=== PATIENT | female | born 1940 | race Caucasian/White ===

== ENCOUNTER 2020-06-06 12:30 | Outpatient (RCR) | payer MEDICARE, SELFPAY ==
--- NOTE | 2020-04-09 14:40 | PTOPEVAL ---
PHYSICAL THERAPY EVALUATION AND PLAN OF CARE 04-09-2020 The PT evaluation was completed for the diagnosis of L UE lymphedema. Her order also includes LE lymphedema, which will be addressed/evaluated after the L UE is completed. Thank you for referring Anne Cortez to [facility].? The patient is scheduled to be seen for therapy? 3 x/week for 4 weeks. Please review, sign, date and return this plan of care NARGIS. I agree with and certify that the following plan of care is medically necessary. Referring Physician Date Attending Provider: ZIA Herrera *PT Outpatient Evaluation Start: 04/09/20 13:38 Document 04/09/20 13:30 LOVELY (Rec: 04/09/20 14:33 LOVELY [id number]) Therapy Assessment Status Assessment Status Assessment Status Evaluation Outpatient Past Medical History Past Medical History Source of Past Medical History Patient Neurological History Hx Neurological Disorders No Significant History Cardiovascular History Hx Hypertension Yes: take med Respiratory History Hx Respiratory Disorders No Significant History Gastrointestinal History Hx Gastrointestinal Disorders No Significant History Genitourinary History Hx Urinary Tract Infection Yes: completed anti biotics about 1 month ago Musculoskeletal History Hx Other Musculoskeletal Disorders Yes: go to chiropractor for posture - Endocrine History Hx Hypothyroidism Yes: take synthyroid HEENT History Hx HEENT Disorders No Significant History Reproductive History Hx Hysterectomy Yes Psychosocial History Hx Anxiety Yes: on lexapro Other History Hx Cancer Yes: L breast Hx Clostridium Difficile Yes: about 15 yr ago Hx Other Surgeries Yes: hernia repair ~ 20 yr ago ; hysterectomy Evaluation Information Problem Diagnosis lymphedema of UE and LE's Onset November 2019 Prior Level of Function Activity Level (Last 3 Months) Occupation retired Hand Dominance Right Activity of Daily Living Ability Independent Indoor/Home Mobility Independent Community Mobility Independent Stairs Ability Independent Functional Cognition (Planning, Shopping Independent , Taking Medications) Cooking Yes Cleaning Yes Laundry Yes Shopping Yes Driving Yes Home Setting Home Type House Living Situation Alone Mobility Assistive Devices (Used Last 3 None Months) Comments Additional Prior Level of Function local family assist PRN with Comments suzanne
--- NOTE | 2020-05-11 13:44 | PTOPEVAL ---
PHYSICAL THERAPY RE-EVALUATION AND UPDATED PLAN OF TREATMENT 05-11-2020 Treatment is complete for her L UE: circumferential measurement of arm has decreased by 23.8 cm; she has a compression sleeve and glove and has been educated on self care of lymphedema. Evaluation completed today to begin treatment for her R and L LE lymphedema. Thank you for referring Anne Cortez to [facility].? She is scheduled to be seen for therapy? 3 x/week for 5 weeks. Please review, sign, date and return this plan of care NARGIS. I agree with and certify that the following plan of care is medically necessary. Referring Physician Date Attending Provider: Daisy Hatfield, PA *PT Outpatient Re-Evaluation Document 05/11/20 13:00 LOVELY (Rec: 05/11/20 13:44 LOVELY [id number]) Subjective Information Anne reports she is late to Query Text:As Reported By Patient/ today's appt due to had to go Family to for bladder infection-- has antibiotic for 14 days; has corn on L toes, with bandage over toes- dr checked and going to have a bone density test on foot to check for bone damage and infection - not scheduled yet; is pleased with her L arm and sleeve and glove are comfortable; wants to have treatment for her legs now; Pain Assessment Timing of Pain Assessment Timing of Pain Assessment Assessment Self Report Self Report Pain Level 0 Pain Score Pain Score 0: Self Report Lymphedema Evaluation Skin Inspection Location Left Lower Extremity,Left Upper Extremity,Right Lower Extremity Skin Observations Absence of Leg Hair,Dorsum Foot Swelling,Hyperkeratosis, Hyperpigmentation,Shiny, Dry, Pale Skin,Swollen, Squared off Toes Skin Inspection Comment L UE: hand and wrist with good skin integrity; distal forearm tissue is good; upper forearm and lateral elbow tissue fibrotic; upper arm with good skin color and integrity; B LE: thighs with good skin color and integrity L and R LE: below knee and foot skin color is red- foot and lower 1/2 of lower leg
--- NOTE | 2020-05-11 13:50 | PCPTNOTE ---
pt was 30 minutes late for today's appointment, stated she was at dr office for bladder infection; Discussed with her that she needs to be on time for her appointments, has been late 15-30 minutes at least for every appointment. Stressed to her to arrive on time to get the full benefit of the therapy sessions. She stated she would try to make it, but have alot going on
--- NOTE | 2020-06-04 14:18 | PCPTNOTE ---
discussed home intermittent pump with pt for LE's; she is interested in pursuing it. Pt signed a release and her info was fasxed to Latanya at [facility]. Latanya will be here Wed 06-06 to demo the pump to pt;
--- NOTE | 2020-06-06 14:15 | PCPTNOTE ---
Anne Fofana UE lymphedema 189.0 directly related to patients breast cancer. 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 Pt is being seen to treat her osteomyelitis of her left 2nd toe which has an open wound that will not heal. She has made improvements as evidence in her measurements, however her symptoms are severe and if she does not treat at home, the swelling will return when she is discharged from therapy. Pt has had some setbacks since coming to therapy, in that, when she has the responsibility to perform self MLD without the use of the pump her legs did reswell over the weekend, requiring additional time to reduce her swelling. The lymphedema intermittent compression is required in order to maintain the progress she has made. Sue Guerra [employer], CLT 06-06-2020
--- NOTE | 2020-06-08 10:05 | PCPTNOTE ---
PHYSICAL THERAPY DISCHARGE 06-08-2020 Attending Provider: Daisy Hatfield, PA Patient:Anne Cortez Date of :1940 Mrs. Obed Cortez has received a total of 26 PT sessions, from April 09 to June 06, for the diagnosis of lymphedema of L UE, R LE and L LE. Circumferential measurements: all have decreased compared to initial evaluation: L UE, up to 44 cm is 277.7, decreased 23.8 cm; LE's up to 68 cm: R LE is 581.6 cm, decreased 29.3 cm and L LE is 590.5 cm, decreased by 42.3 cm. Compression garments: She has a Medivan Whick sleeve and glove, 30-40 mmHg for her L UE; for her LE's she has Medivan thigh high compression 30-40 mmHg. Anne is independent with donning and doffing the garments and has been educated on use. Skin integrity: Anne has good skin color and integrity over her L UE and B LE's. She does have some fibrotic tissue over lower legs, which softens after the lymph drainage and wearing her compression garments. There is some redness over L 2nd toe, which she is following with medical care for osteomyelitis. Education: She has been educated on self care of her lymphedema, with manual lymph drainage, compression garments, monitor skin and exercises. A home intermittent compression pump was demonstrated to her and [facility] is checking with her insurance for coverage for a home unit to assist with managing her chronic lymphedema. The goals have been met, therefore, she will be discharged from PT at this time. Thank you for referring Mrs. Obed Cortez to [facility]. Please review, sign, date and return this discharge summary NARGIS. I have been updated about the patient's current status and I agree with discharge from the above service at this time. Referring Physician Date
== END 2020-06-08 10:51 | disposition home or self-care (01) ==
LOC: ANHPT 12:30
PROVIDERS: PCP Internal Medicine; Visit Provider Physician Assistant Medical
DX: I89.0 Lymphedema, not elsewhere classified (principal)
CPT/HCPCS: 29581; 97016; 97140; 97161

== ENCOUNTER 2024-06-16 14:00 | Outpatient (RCR) | payer MEDICARE, SELFPAY ==
--- NOTE | 2024-03-28 16:46 | PTOPEVAL1 ---
Assessment and note entered by Elizabeth Lemon, PT Evaluation Information Assessment Status Evaluation Subjective Information Pt reports her grand daughter made her come here and do therapy. She denies any falls in the last 6 months and states that she is very careful and she prays all the time so she will not fall. Denies using assistive device in the past and adamant about not wanting to use any at all. She lives alone indep with all ADLs, and IADLs, driving. States her granddaughter comes over to help with cutting grass. Reports that she has been having chronic back pain and that is because of her Osteoporosis and she has received Chiropractic treatments in the past. States that she knows she is walking like a duck, she is not walking normal and would like therapy to help her walk better. Reported Pain Level Pain Score 0: Self Report Assessment PT Clinical Summary Pt is an 83yo female who presents to therapy with c/o abnormalities in gait and mobility, noticeable confusion and balance deficits, weakness and postural impairments. She will greatly benefit from skilled PT to improve indep functional mobility and reduce risk for falls. Plan of Care Interventions Gait Training,Hot Pack/Cold Pack,Manual Therapy, Neuro Re-education,Patient/Caregiver Education, Therapeutic Activities,Therapeutic Exercise, Ultrasound PT Services Indicated Yes Treatment Frequency and 2x/10 visits Duration These treatments will address the objective and functional deficits as defined above. The patient will be advanced safely and appropriately in order for the patient to progress towards his/her prior level of function. Additional exercises will be introduced and as well as a comprehensive home exercise program upon discharge, if needed, ?to ensure carryover of functional gains achieved in the clinic. This treatment plan has been reviewed and agreement upon by the patient.
--- NOTE | 2024-03-29 13:13 | OPREHPOC ---
Outpatient Therapy Plan of Care This is a Multidisciplinary Plan of Care that may contain components documented by all disciplines (PT, OT, and ST.) PT Problem 1 PT Problem #1 Knowledge Deficit PT Goal 1 Goal Pt will demo HEPs to improve trunk and BLE flexibility and strength Target Visit 10 PT Problem 2 PT Problem #2 Impaired Strength PT Goal 1 Goal PT will demo 5xSTS in 15 seconds or less without using BUE to improve general BLE strength Target Visit 10 PT Problem 3 PT Problem #3 Impaired Balance PT Goal 1 Goal 1. Pt will demo TUG score of 12 seconds or less with appropriate assistive device if needed to reduce risk for falls when ambulating in the community. 2. Pt will demo Tinetti Assessment score of 24/28 or more to reduce risk for falls when performing transfers and standing tasks at home and within the community. Target Visit 10 PT Problem 4 PT Problem #4 Impaired Gait PT Goal 1 Goal Pt will perform normalized gait pattern and safety gait mechanics when ambulating on various surfaces (concrete, level surfaces, uneven ground) and stairs Target Visit 10
--- NOTE | 2024-03-29 13:16 | PTOPEVAL1 ---
Assessment and note entered by Elizabeth Lemon, PT Evaluation Information Assessment Status Evaluation Diagnosis R26.9 ICD-10 Condition Codes (PT) Pain in low back M54.50,Difficulty Walking R26.2, Weakness R53.1 Onset several weeks ago Subjective Information Reports that she has been having chronic back pain and that is because of her Osteoporosis and she has received Chiropractic treatments in the past. States that she knows she is walking like a duck, she is not walking normal and would like therapy to help her walk better. Pt reports her grand daughter made her come here and do therapy. She denies any falls in the last 6 months and states that she is very careful and she prays all the time so she will not fall. Denies using assistive device in the past and adamant about not wanting to use any at all. She lives alone indep with all ADLs, and IADLs, driving. States her granddaughter comes over to help with cutting grass. Reported Pain Level Pain Score 0: Self Report Assessment PT Clinical Summary Pt is an 83yo female who presents to therapy with c/o abnormalities in gait and mobility, noticeable confusion and balance deficits, weakness and postural impairments. She will greatly benefit from skilled PT to improve indep functional mobility and reduce risk for falls. Plan of Care Interventions Gait Training,Hot Pack/Cold Pack,Manual Therapy, Neuro Re-education,Patient/Caregiver Educati, Therapeutic Activities,Therapeutic Exercise, Ultrasound PT Services Indicated Yes Treatment Frequency and 2x/10 visits Duration These treatments will address the objective and functional deficits as defined above. The patient will be advanced safely and appropriately in order for the patient to progress towards his/her prior level of function. Additional exercises will be introduced and as well as a comprehensive home exercise program upon discharge, if needed, ?to ensure carryover of functional gains achieved in the clinic. This treatment plan has been reviewed and agreement upon by the patient.
--- NOTE | 2024-04-27 13:30 | PCPTNOTE ---
Patient called & cancelled scheduled appointment this date due to family emergency
--- NOTE | 2024-05-02 16:59 | PTOPPROG ---
Assessment and note entered by Elizabeth Lemon, PT Evaluation Information Assessment Status Progress Diagnosis R26.9 ICD-10 Condition Codes (PT) Pain in low back M54.50,Difficulty Walking R26.2, Weakness R53.1 Onset several weeks ago Subjective Information Pt. reports she is feeling better. Assessment PT Clinical Summary Pt attended a total of 9 visits of Physical Therapy and demos gains in general strength and balance. She states she is not consistent with HEPs but performs regular housework on a daily basis and does a lot of walking. During the test and measures, pt continue to demo weakness to L hip flexors and abductors. She has partially met her goals and is motivated to continue working to achieve established residential goals to improve safety and indep mobility at home and in the community. Plan of Care Interventions Electrical Stimulation,Gait Training,Hot Pack/Cold Pack,Manual Therapy,Neuro Re-education,Patient/ Caregiver Education,Therapeutic Activities, Therapeutic Exercise,Ultrasound Other Interventions IASTM PT Services Indicated Yes Treatment Frequency and 2x/wk x 10 visits Duration These treatments will address the objective and functional deficits as defined above. The patient will be advanced safely and appropriately in order for the patient to progress towards his/her prior level of function. Additional exercises will be introduced and as well as a comprehensive home exercise program upon discharge, if needed, ?to ensure carryover of functional gains achieved in the clinic. This treatment plan has been reviewed and agreement upon by the patient.
--- NOTE | 2024-05-02 17:01 | PTOPPROG ---
Assessment and note entered by Elizabeth Lemon, PT Evaluation Information Assessment Status Progress Diagnosis R26.9 ICD-10 Condition Codes (PT) Pain in low back M54.50,Difficulty Walking R26.2, Weakness R53.1 Onset several weeks ago Subjective Information Pt. reports she is feeling better. However, she wants to continue working on her strength and balance because she does not want to fall and wants to continue being active in the community. Assessment PT Clinical Summary Pt attended a total of 9 visits of Physical Therapy and demos gains in general strength and balance. She states she is not consistent with HEPs but performs regular housework on a daily basis and does a lot of walking. During the test and measures, pt continue to demo weakness to L hip flexors and abductors. She has partially met her goals and is motivated to continue working to achieve established senior care goals to improve safety and indep mobility at home and in the community. Plan of Care Interventions Electrical Stimulation,Gait Training,Hot Pack/Cold Pack,Manual Therapy,Neuro Re-education,Patient/ Caregiver Education,Therapeutic Activities, Therapeutic Exercise,Ultrasound Other Interventions I[facility] PT Services Indicated Yes Treatment Frequency and 2x/wk x 10 visits Duration These treatments will address the objective and functional deficits as defined above. The patient will be advanced safely and appropriately in order for the patient to progress towards his/her prior level of function. Additional exercises will be introduced and as well as a comprehensive home exercise program upon discharge, if needed, ?to ensure carryover of functional gains achieved in the clinic. This treatment plan has been reviewed and agreement upon by the patient.
--- NOTE | 2024-06-16 16:25 | PTOPPROG ---
Assessment and note entered by Elizabeth Lemon, PT Re-Eval Information Assessment Status Progress Diagnosis R26.9 ICD-10 Condition Codes (PT) Pain in low back M54.50,Difficulty Walking R26.2, Weakness R53.1 Onset several weeks ago Subjective Information Pt. reports she is walking better and she has not had any falls since she started therapy. States she is working harder on doing her HEPs. She cont to feel balance issues when working in the yard and uneven surfaces but states she is being very careful. Assessment PT Clinical Summary Pt received a total of 20 skilled PT treatment sessions and demos good gains in mobility and strength. Noted improvement in balance and cont to ambulate without AD. No recent falls reported, Balance test scores have improved and pt is able to perform single leg standing task without BUE support. She will benefit from continued therapy to further work on her balance strategies and improve dynamic standing balance to allow indep and safe ambulation on uneven surfaces and stairs. Plan of Care Interventions Electrical Stimulation,Gait Training,Hot Pack/Cold Pack,Manual Therapy,Neuro Re-education,Patient/ Caregiver Education,Therapeutic Activities, Therapeutic Exercise,Ultrasound Other Interventions I[facility] PT Services Indicated Yes Treatment Frequency and 2x/wk x 6 visits Duration These treatments will address the objective and functional deficits as defined above. The patient will be advanced safely and appropriately in order for the patient to progress towards his/her prior level of function. Additional exercises will be introduced and as well as a comprehensive home exercise program upon discharge, if needed, ?to ensure carryover of functional gains achieved in the clinic. This treatment plan has been reviewed and agreement upon by the patient.
== END 2024-06-26 23:59 | disposition home or self-care (01) ==
LOC: ANHHIPT 14:00
PROVIDERS: PCP Physician Assistant Medical; Visit Provider Physician Assistant Medical
DX: R26.9 Unspecified abnormalities of gait and mobility (principal)
CPT/HCPCS: 97035; 97110; 97112; 97116; 97140; 97161; 97750

== ENCOUNTER 2024-07-29 13:15 | Outpatient (RCR) | payer MEDICARE, SELFPAY ==
--- NOTE | 2024-07-29 20:09 | PTOPDC ---
Assessment and note entered by Elizabeth Lemon, PT Discharge Information Assessment Status Discharge Diagnosis R26.9 ICD-10 Condition Codes (PT) Difficulty Walking R26.2,Weakness R53.1,Pain in low back M54.50 Onset several weeks ago Subjective Information Pt. reports she feels she is doing much better and walking better. Her grand daughter noticed that she (patient) is not dragging her foot anymore. Reported Pain Level Pain Score 0: Self Report Assessment PT Clinical Summary Pt received a total of 24 visits and demos good progress with therapy. Demos improved strength and mobility and gait mechanics. However, she continue to demo stiffness and balance deficits which continue to increase her risk for falls. Pt verbalized that she would like to discontinue therapy at this time and will perform exercises at home as educated, she has an upcoming PCP appointment for follow-up and assessment. Patient DC'd from therapy program. Plan of Care PT Services Indicated No
== END 2024-08-01 15:37 | disposition home or self-care (01) ==
LOC: ANHHIPT 13:15
PROVIDERS: PCP Physician Assistant Medical; Visit Provider Physician Assistant Medical
DX: R26.9 Unspecified abnormalities of gait and mobility (principal)
CPT/HCPCS: 97110; 97112; 97116; 97140; 97530; 97750

== ENCOUNTER 2024-12-19 09:15 | Outpatient (RCR) | payer MEDICARE, SELFPAY ==
--- NOTE | 2024-10-24 12:12 | PTOPEVAL1 ---
Assessment and note entered by Elizabeth Lemon, PT Evaluation Information Assessment Status Evaluation Diagnosis R26.89 ICD-10 Condition Codes (PT) Abnormalities of gait and mobility R26.9,Weakness R53.1 Subjective Information Pt reports she has received Physical Therapy in the past year for her back problems and BLE weakness to which she noticed good results. She presents to therapy today secondary to fear of falling and unsteadiness on her feet; denies dizziness or nausea, denies visual or hearing problems at this time. Reports has had 1 fall while picking up sticks in the yard and she was unable to get back up, needing physical assistance from neighbors. States she ambulates without AD and would like to continue being independent from AD as long as she could. States her personal goal for participating in therapy is to not fall and walk better. Assessment PT Clinical Summary Pt presents to therapy with c/o unsteadiness and reduced confidence in her balance. Demos an ABC scale level of 40%, Tinetti Assessment score and Ortiz Balance Score both fall on moderate to high risk for falls; pt also demos increased trunk rigidity, reports stiffness and occasional pain/ discomfort to back and BLEs, postural impairments, ROM deficits and weakness which impact overall mobility. Pt reports having 1 fall in the last 6 months and she was unable to get up from the floor , requiring increased physical assistance. She will greatly benefit from skilled PT intervention to focus on strengthening, flexibility, balance and coordination training, postural stability and safety awareness training in order to improve confidence with household and community functional mobility indep without AD. Plan of Care Interventions Gait Training,Hot Pack/Cold Pack,Manual Therapy, Neuro Re-education,Patient/Caregiver Education, Therapeutic Activities,Therapeutic Exercise PT Services Indicated Yes Treatment Frequency and 1x/wk x 10 visits Duration These treatments will address the objective and functional deficits as defined above. The patient will be advanced safely and appropriately in order for the patient to progress towards his/her prior level of function. Additional exercises will be introduced and as well as a comprehensive home exercise program upon discharge, if needed, ?to ensure carryover of functional gains achieved in the clinic. This treatment plan has been reviewed and agreement upon by the patient.
--- NOTE | 2024-12-05 10:17 | PTOPPROG ---
Assessment and note entered by Jo Rea, PT Evaluation Information Assessment Status Progress Diagnosis R26.89 ICD-10 Condition Codes (PT) Abnormalities of gait and mobility R26.9,Weakness R53.1 Subjective Information Pt states no falls since starting therapy. States is very careful and now she takes her phone with her. Is going to pear picker sticks today, uses a rake and then puts them all in a box, then uses a string to pull the box across the yard. Pt reports feeling her walking and her balance is much better . Assessment PT Clinical Summary Pt has attended therapy consistently for balance and gait. Pt shows some improvement in her balance with improved 5x it to stand, improved TUG scores , improved quality of gait and mobility, improved stair navigation. However her overall Tinetti score, Ortiz score, and inability to perform tandem and single leg stance show continued balance deficits putting her in a high fall risk category. She has two more visits and states she would like to be done with therapy at that point. In those visits we will focus on modification techniques to improve fall risk during her activities such as use of walking stick as discussed today. Plan of Care Interventions Gait Training,Hot Pack/Cold Pack,Manual Therapy, Neuro Re-education,Patient/Caregiver Education, Therapeutic Activities,Therapeutic Exercise,Self- Care/Home Management,Other PT Services Indicated Yes Treatment Frequency and Continue remainder of POC Duration These treatments will address the objective and functional deficits as defined above. The patient will be advanced safely and appropriately in order for the patient to progress towards his/her prior level of function. Additional exercises will be introduced and as well as a comprehensive home exercise program upon discharge, if needed, ?to ensure carryover of functional gains achieved in the clinic. This treatment plan has been reviewed and agreement upon by the patient.
--- NOTE | 2024-12-19 15:09 | PTOPDC ---
Assessment and note entered by Elizabeth Lemon, PT Discharge Information Assessment Status Discharge Diagnosis R26.89 ICD-10 Condition Codes (PT) Abnormalities of gait and mobility R26.9,Weakness R53.1 Subjective Information Pt reports she feels like she is walking better and her legs feel stronger. States she learned a lot from therapy and will try to continue doing exercises and to be cautious when outdoors to prevent falls. Reports she will continue to move around outside and refuse to use any assistive device at this time. Reported Pain Level Pain Score 0: Self Report Assessment PT Clinical Summary Pt received a total of 10 therapy treatment sessions for unsteadiness and gait abnormalities. Demos good progress and showed gains in strength and stability, endurance and gait mechanics. She has increased her Tinetti and SAN Balance Scale score and is able to get up and up from the chair without support. She is agreeable to DC therapy and comply with HEPs to maintain ability to perform functional activity with reduced risk for falls. Skilled PT intervention discontinued at this time. Plan of Care PT Services Indicated No
== END 2024-12-20 08:32 | disposition home or self-care (01) ==
LOC: ANHHIPT 09:15
PROVIDERS: PCP Physician Assistant Medical; Visit Provider Physician Assistant Medical
DX: R26.89 Other abnormalities of gait and mobility (principal)
CPT/HCPCS: 97110; 97112; 97140; 97161; 97750